=== PATIENT | female | born 1975 | race Caucasian/White ===

== ENCOUNTER → 2018-05-10 | Day surgery (SDC) | payer OTHER ==
[~2018-05-10] MED LIST: FENTANYL CITRATE/PF 100MCG/2 ML INJ ONE; HYOSCYAMINE SULFATE 0.5 MG/ML INJ ONE; LIDOCAINE HCL 2% LOCAL INJ 5 ML SDV VIAL INJ ONE; MIDAZOLAM HCL 2 MG/2 ML VIAL ONE; PROPOFOL IV EMULSION 10 MG/ML 50 ML VIAL ONE; REQUIP1 MG PO; TOPAMAX25 MG PO
--- OUTSIDE RECORDS SUMMARY | 2018-05-10 13:02 | XMS REPORT ---
Author Author Flower Clements Organization eClinicalWorks Address Unknown Phone Unavailable Care Team Providers Care Director Strategy Name Role Phone Flower Clements Unavailable Allergies No Known Allergies Problems Problem Type Condition Code Onset Dates Condition Status Problem Chest pain R07.9 Active Problem SOB (shortness of breath) R06.02 Active Problem Chronic migraine G43.709 Active Assessment Acute pain of right shoulder M25.511 Active Medications Medication Code System Code Instructions Start Date End Date Status Dosage Sumatriptan Succinate [facility] [address]-66 100 MG orally at onset of headache repeat in 4hrs if needed max 2 a day Active 1 tablet Results No Known Results Summary Purpose eClinicalWorks Submission
--- OUTSIDE RECORDS SUMMARY | 2018-05-10 13:02 | XMS REPORT | Continuity of Care Document ---
Author Author [facility] Interface Address Unknown Phone Unavailable Problems Problem Status Onset Date Classification Date Reported Comments Source Cellulitis of skin 09/07/2016 Diagnosis 09/07/2016 [facility] Chest pain Active Problem 12/20/2017 [facility] Chronic migraine Active Problem 04/12/2018 [facility] Acute seasonal allergic rhinitis due to other allergen Active Problem 04/12/2018 [facility] SOB Active Problem 11/01/2016 [facility] Acute pain of right shoulder Active Diagnosis 05/25/2016 [facility] Yeast infection Active Diagnosis 09/15/2016 [facility] Encounter for initial prescription of injectable contraceptive Active Diagnosis 09/15/2016 [facility] Abscess Active Diagnosis 05/14/2017 [facility] Contraceptive management Active Diagnosis 10/04/2016 [facility] Encounter for surveillance of injectable contraceptive Active Diagnosis 01/05/2017 [facility] Encntr for general adult medical exam w/o abnormal findings Active Diagnosis 01/05/2017 [facility] Screening for breast cancer Active Diagnosis 01/05/2017 [facility] Encounter to discuss test results Active Diagnosis 07/10/2016 [facility] Osteoarthritis of right shoulder, unspecified osteoarthritis type Active Diagnosis 07/10/2016 [facility] UTI symptoms Active Diagnosis 12/20/2017 [facility] Symptoms of urinary tract infection Active Diagnosis 11/28/2017 [facility] Tendonitis of shoulder, right Active Diagnosis 09/18/2017 [facility] Chest discomfort Active Diagnosis 09/18/2017 [facility] Overweight Active Diagnosis 06/03/2015 [facility] Vaginitis Active Diagnosis 06/03/2015 [facility] Urinary tract infection Active Diagnosis 06/03/2015 [facility] BMI 25.0-25.9,adult Active Diagnosis 06/03/2015 [facility] Sore throat Active Diagnosis 06/03/2015 [facility] 719.46/719.4 Active [facility] Medications Medication Details Route Status Patient Instructions Ordering Provider Order Date Source Keflex 1 capsule Orally Active 500 mg Orally every 12 hrs Raymond 12/16/2017 [facility] Augmentin 1 tablet by mouth Active 875-125 MG by mouth twice a day (bid) Raymond 11/29/2017 [facility] Tramadol HCl 1 tablet as needed Orally Active 50 mg Orally Q8 PRN Raymond 05/09/2017 [facility] Ibuprofen 1 tablet with food or milk Orally Active 800 MG Orally Q8 PRN Raymond 05/09/2017 [facility] Depo-Provera 1 ml Intramuscular Active 150 MG/ML Intramuscular every 3 mo Charlie 09/13/2016 [facility] Diflucan 1 tablet Orally Active 150 MG Orally one today and again in 72 hours Charlie 09/13/2016 [facility] Depo-Provera 1 ml Intramuscular Active 150 MG/ML Intramuscular every 3 mo Charlie 09/13/2016 [facility] Naproxen 1 tablet Orally Active 375 MG Orally Twice a day prn Nikolas Sanderson 03/26/2016 [facility] Diflucan 1 tablet Orally Active 150 MG Orally take one, and then another in 72 hours [place] 05/31/2015 [facility] Cipro 1 tablet Orally Active 500 mg Orally Twice a day [place] 05/31/2015 [facility] Tamiflu 1 capsule Orally Active 75 mg Orally once a day Mark 02/03/2014 [facility] Sumatriptan Succinate 1 tablet orally Active 100 mg orally at onset of headache repeat in 4hrs if needed max [address] [facility] Sumatriptan Succinate 1 tablet orally Active 100 MG orally at onset of headache repeat in 4hrs if needed max 2 a day [address] Sand[address] [facility] Sumatriptan Succinate 1 tablet orally Active 100 mg orally at onset of headache repeat in 4hrs if needed max [address] [facility] Indomethacin CR TAKE ONE (1) CAPSULE(S) BY MOUTH ONCE A DAY WITH FOOD OR MILK. Oral Active 75 MG Oral Raymond [facility] Ropinirole HCl TAKE ONE (1) TABLET(S) BY MOUTH DAILY AT NIGHT. Oral Active 0.25 MG Oral Raymond [facility] Topamax 1 capsule Orally Active 25 MG Orally Once a day Raymond [facility] Cephalexin 500 MG Oral Capsule cephalexin 500 mg capsule Take 1 capsule every 6 hours by oral route as directed for 7 days. Active [facility] Mupirocin 0.02 MG/MG Topical Ointment mupirocin 2 % topical ointment APPLY A SMALL AMOUNT TO THE AFFECTED AREA BY TOPICAL ROUTE 3 TIMES PER DAY X 10 days Active [facility] Naproxen 375 MG Oral Tablet naproxen 375 mg tablet TAKE ONE (1) TABLET(S) BY MOUTH TWICE A DAY NEEDED. Active [facility] Ondansetron 4 MG Disintegrating Oral Tablet ondansetron 4 mg disintegrating tablet Active [facility] Phentermine Hydrochloride 37.5 MG Oral Tablet phentermine 37.5 mg tablet TAKE ONE-HALF (1/2) TABLET(S) BY MOUTH EVERY PROJECT DEVELOPER FOR ONE WEEK, THEN ONE (1) TABLET EVERY PROJECT DEVELOPER. Active [facility] Sumatriptan 100 MG Oral Tablet sumatriptan 100 mg tablet Active [facility] Allergies, Adverse Reactions, Alerts Substance Category Reaction Severity Reaction type Status Date Reported Comments Source N.K.D.A. Adverse Reaction Info Not Available Adverse Reaction Active 11/27/2017 [facility] Immunizations Immunization Date Given Site Status Last Updated Comments Source Results Order Name Results Value Reference Range Date Interpretation Comments Source Vital Signs Vital Sign Value Date Comments Source Weight 158 11/27/2017 [facility] Height 61 11/27/2017 [facility] Heart Rate 80 11/27/2017 [facility] Diastolic (mm Hg) 80 11/27/2017 [facility] Systolic (mm Hg) 110 11/27/2017 [facility] Weight 157 09/09/2017 [facility] Height 61 09/09/2017 [facility] Temperature Oral (F) 98.2 F 09/09/2017 [facility] Heart Rate 74 09/09/2017 [facility] Diastolic (mm Hg) 84 09/09/2017 [facility] Systolic (mm Hg) 130 09/09/2017 [facility] Weight 158 05/09/2017 [facility] Height 61 05/09/2017 [facility] Heart Rate 80 05/09/2017 [facility] Diastolic (mm Hg) 88 05/09/2017 [facility] Systolic (mm Hg) 128 05/09/2017 [facility] Weight 156 01/02/2017 [facility] Height 61 01/02/2017 [facility] Heart Rate 73 01/02/2017 [facility] Diastolic (mm Hg) 86 01/02/2017 [facility] Systolic (mm Hg) 130 01/02/2017 [facility] Weight 151 09/13/2016 [facility] Height 61 09/13/2016 [facility] Heart Rate 96 09/13/2016 [facility] Diastolic (mm Hg) 84 09/13/2016 [facility] Systolic (mm Hg) 122 09/13/2016 [facility] Diastolic (mm Hg) 84 09/07/2016 [facility] Height 61 09/07/2016 [facility] Systolic (mm Hg) 136 09/07/2016 [facility] Weight 148 09/07/2016 [facility] Weight 156 07/05/2016 [facility] Height 61 07/05/2016 [facility] Heart Rate 76 07/05/2016 [facility] Diastolic (mm Hg) 80 07/05/2016 [facility] Systolic (mm Hg) 112 07/05/2016 [facility] Weight 148 03/26/2016 [facility] Height 61 03/26/2016 [facility] Heart Rate 79 03/26/2016 [facility] Diastolic (mm Hg) 80 03/26/2016 [facility] Systolic (mm Hg) 112 03/26/2016 [facility] Weight 135 05/31/2015 [facility] Height 61 05/31/2015 [facility] Temperature Oral (F) 98.4 F 05/31/2015 [facility] Heart Rate 66 05/31/2015 [facility] Diastolic (mm Hg) 78 05/31/2015 [facility] Systolic (mm Hg) 122 05/31/2015 [facility] Encounters Location Location Details Encounter Type Encounter Number Reason For Visit Attending Provider ADM Date DC Date Status Source [facility] [id number] 719.46/719.4 BETSY FLORESENBERG 12/25/2010 Active [facility] urine test/sore throat [id number] 05/31/2015 05/31/2015 [facility] urine test/sore throat [id number] 05/31/2015 05/31/2015 [facility] urine test/sore throat [id number] 05/31/2015 05/31/2015 [facility] urine test/sore throat [id number] 05/31/2015 05/31/2015 [facility] Unknown [id number] 12/22/2015 12/22/2015 [facility] Unknown [id number] 12/22/2015 12/22/2015 [facility] Unknown [id number] 12/22/2015 12/22/2015 [facility] shoulder pain [id number] 03/26/2016 03/26/2016 [facility] shoulder pain [id number] 03/26/2016 03/26/2016 [facility] Unknown [id number] 05/15/2016 05/15/2016 [facility] [place] - [facility] - [id number] Glaser, LICENSED EMBALMER SUPERVISOR-C: [address] [place] [address], Ph. [id number] Rabia Glaser 09/07/2016 [facility] Procedures Procedure Code Date Perfomer Comments Source Breast Reconstruction [facility] Hernia Repair W/mesh [facility]
--- OUTSIDE RECORDS SUMMARY | 2018-05-10 13:02 | XMS REPORT ---
Author Author Flower Clements [facility] eClinicalWorks Address Unknown Phone Unavailable Care Team Providers Care Assistant Professor Of Business Name Role Phone Flower Clements CP Unavailable Allergies, Adverse Reactions, Alerts Substance Reaction Event Type N.K.D.A. Info Not Available Non Drug Allergy Problems Problem Type Condition Code Onset Dates Condition Status Problem Chest pain R07.9 Active Problem SOB (shortness of breath) R06.02 Active Problem Chronic migraine G43.709 Active Assessment Encounter to discuss test results Z71.89 Active Assessment Osteoarthritis of right shoulder, unspecified osteoarthritis type M19.011 Active Medications Medication Code System Code Instructions Start Date End Date Status Dosage Sumatriptan Succinate [facility] [address]-76 100 MG orally at onset of headache repeat in 4hrs if needed max 2 a day Active 1 tablet Vital Signs Date/Time: July 05, 2016 BMI 29.47 Index Weight 156 lbs Height 61 in Cardiac Monitoring Heart Rate 76 /min Blood Pressure Diastolic 80 mm Hg Blood Pressure Systolic 112 mm Hg Results No Known Results Summary Purpose eClinicalWorks Submission
--- OUTSIDE RECORDS SUMMARY | 2018-05-10 13:03 | XMS REPORT ---
Author Author Kristina Andrade [facility] eClinicalWorks Address Unknown Phone Unavailable Care Team Providers Care Mold Yard Supervisor Name Role Phone Kristina Andrade Unavailable Allergies No Known Allergies Problems Problem Type Condition Code Onset Dates Condition Status Problem Chest pain R07.9 Active Problem Chronic migraine G43.709 Active Problem Acute seasonal allergic rhinitis due to other allergen J30.2 Active Assessment UTI symptoms R39.9 Active Medications Medication Code System Code Instructions Start Date End Date Status Dosage Indomethacin CR [facility] 02713139377 75 MG Oral Active TAKE ONE (1) CAPSULE(S) BY MOUTH ONCE A DAY WITH FOOD OR MILK. Ropinirole HCl [facility] 94742994273 0.25 MG Oral Active TAKE ONE (1) TABLET(S) BY MOUTH DAILY AT NIGHT. Keflex [facility] 76147322908 500 mg Orally every 12 hrs Dec 16, 2017 Dec 23, 2017 Active 1 capsule Topamax [facility] [address]-33 25 MG Orally Once a day Active 1 capsule Results No Known Results Summary Purpose eClinicalWorks Submission
--- OUTSIDE RECORDS SUMMARY | 2018-05-10 13:03 | XMS REPORT ---
Author Author Kristina Andrade [facility] eClinicalWorks Address Unknown Phone Unavailable Care Team Providers Care Chisel Worker Name Role Phone Kristina Andrade CP Unavailable Allergies No Known Allergies Problems Problem Type Condition Code Onset Dates Condition Status Problem Chest pain R07.9 Active Problem Chronic migraine G43.709 Active Problem Acute seasonal allergic rhinitis due to other allergen J30.2 Active Medications Medication Code System Code Instructions Start Date End Date Status Dosage Augmentin [facility] 72306178941 875-125 MG by mouth twice a day (bid) Nov 29, 2017 Dec 09, 2017 Active 1 tablet Results No Known Results Summary Purpose eClinicalWorks Submission
--- OUTSIDE RECORDS SUMMARY | 2018-05-10 13:03 | XMS REPORT ---
Author Author Yane Guerra [facility] eClinicalWorks Address Unknown Phone Unavailable Care Team Providers Care Gluer And Wedger Name Role Phone Yane Guerra Unavailable Allergies, Adverse Reactions, Alerts Substance Reaction Event Type N.K.D.A. Info Not Available Non Drug Allergy Problems Problem Type Condition Code Onset Dates Condition Status Problem Chest pain R07.9 Active Problem SOB (shortness of breath) R06.02 Active Problem Chronic migraine G43.709 Active Assessment Contraceptive management Z30.9 Active Medications Medication Code System Code Instructions Start Date End Date Status Dosage Depo-Provera [facility] [address]-15 150 MG/ML Intramuscular every 3 mo September 13, 2016 Mar 12, 2017 Active 1 ml Sumatriptan Succinate [facility] [address]-38 100 MG orally at onset of headache repeat in 4hrs if needed max 2 a day Active 1 tablet Results Name Result Date Reference Range Unit Abnormality Flag DEPO PROVERA ADMIN THER/PROPH/DIAG INJ, SC/IM Summary Purpose eClinicalWorks Submission
--- OUTSIDE RECORDS SUMMARY | 2018-05-10 13:03 | XMS REPORT ---
Author Author Flower Clements Organization eClinicalWorks Address Unknown Phone Unavailable Care Team Providers Care Pipe Manufacture Supervisor Name Role Phone Flower Clements Unavailable Encounters Encounter Location Date urine test/sore throat [facility] May 31, 2015 Unknown [facility] Dec 22, 2015 Problems Problem Type Condition ICD-9 Code Onset Dates Condition Status Problem Chest pain R07.9 Active Problem SOB (shortness of breath) R06.02 Active Problem Chronic migraine G43.709 Active Assessment Chronic migraine G43.709 Active Medications Medication Code System Code Instructions Start Date End Date Status Dosage Sumatriptan Succinate [facility] [address]-56 100 MG orally at onset of headache repeat in 4hrs if needed max 2 a day Active 1 tablet Social History Social History Element Qualifiers Date 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 Are you a: never smoker May 31, 2015 Ethnicity . Status , Is citizen of [place] your primary language? Yes May 31, 2015 Use of recreational / street drugs? . Answer: No May 31, 2015 Flu Vaccine: . No, Advised May 31, 2015 Sexual Hx: . Had sex in the last 12 months (vaginal, oral, or anal)?: Yes, with: Men only, Use protection?: Yes, How often?: All of the time, Prevention Strategies discussed:: Condoms, Have you ever had an STD?: Yes, Chlamydia?: Yes, LMP:: 05/14/2015 May 31, 2015 Do you have pets? . Status: No May 31, 2015 children . 1 son, 1 daughter May 31, 2015 Marital Status: . May 31, 2015 Caffeine intake? . Status: Yes, What type: Coffee May 31, 2015 Do you exercise? . Answer: Yes, Type: Carlotta May 31, 2015 Depression Screening: . negative May 31, 2015 Do you drink alcohol? . Status: Yes, Type: Beer, Liquor, How often? Socially, How much? Socially May 31, 2015 Summary Purpose eClinicalWorks Submission
--- OUTSIDE RECORDS SUMMARY | 2018-05-10 13:03 | XMS REPORT ---
Author Author Kristina Andrade [facility] eClinicalWorks Address Unknown Phone Unavailable Care Team Providers Care Consulting Application Engineer Name Role Phone Kristina Andrade CP Unavailable Allergies No Known Allergies Problems Problem Type Condition Code Onset Dates Condition Status Problem Chest pain R07.9 Active Problem Chronic migraine G43.709 Active Problem Acute seasonal allergic rhinitis due to other allergen J30.2 Active Assessment Chronic migraine G43.709 Active Medications Medication Code System Code Instructions Start Date End Date Status Dosage Sumatriptan Succinate [facility] 07023300269 100 mg orally at onset of headache repeat in 4hrs if needed max 2 a day Active 1 tablet Results No Known Results Summary Purpose eClinicalWorks Submission
--- OUTSIDE RECORDS SUMMARY | 2018-05-10 13:03 | XMS REPORT ---
Author Author Kristina Andrade [facility] eClinicalWorks Address Unknown Phone Unavailable Care Team Providers Care Movie Critic Name Role Phone Kristina Andrade CP Unavailable Allergies, Adverse Reactions, Alerts Substance Reaction Event Type N.K.D.A. Info Not Available Non Drug Allergy Problems Problem Type Condition Code Onset Dates Condition Status Problem Chest pain R07.9 Active Problem Chronic migraine G43.709 Active Problem Acute seasonal allergic rhinitis due to other allergen J30.2 Active Assessment Abscess L02.91 Active Medications Medication Code System Code Instructions Start Date End Date Status Dosage Tramadol HCl [facility] 28728088279 50 mg Orally Q8 PRN May 09, 2017 May 16, 2017 Active 1 tablet as needed Ibuprofen [facility] 05351637581 800 MG Orally Q8 PRN May 09, 2017 May 16, 2017 Active 1 tablet with food or milk Sumatriptan Succinate [facility] 01902947271 100 mg orally at onset of headache repeat in 4hrs if needed max 2 a day Active 1 tablet Vital Signs Date/Time: May 09, 2017 BMI 29.85 Index Weight 158 lbs Height 61 in Cardiac Monitoring Heart Rate 80 /min Blood Pressure Diastolic 88 mm Hg Blood Pressure Systolic 128 mm Hg Results No Known Results Summary Purpose eClinicalWorks Submission
--- OUTSIDE RECORDS SUMMARY | 2018-05-10 13:03 | XMS REPORT ---
Author Author Flower Clements Organization eClinicalWorks Address Unknown Phone Unavailable Care Team Providers Care Surfacing Technician Name Role Phone Flower Clements Unavailable Allergies No Known Allergies Problems Problem Type Condition Code Onset Dates Condition Status Problem Chest pain R07.9 Active Problem Chronic migraine G43.709 Active Problem Acute seasonal allergic rhinitis due to other allergen J30.2 Active Medications Medication Code System Code Instructions Start Date End Date Status Dosage Keflex [facility] 52299224473 500 mg Orally every 12 hrs Dec 16, 2017 Dec 23, 2017 Active 1 capsule Results No Known Results Summary Purpose eClinicalWorks Submission
--- OUTSIDE RECORDS SUMMARY | 2018-05-10 13:03 | XMS REPORT ---
Author Author Flower Clements Organization eClinicalWorks Address Unknown Phone Unavailable Care Team Providers Care Shingle Catcher Name Role Phone Flower Clements CP Unavailable Allergies No Known Allergies Problems Problem Type Condition Code Onset Dates Condition Status Problem Chest pain R07.9 Active Problem Chronic migraine G43.709 Active Problem Acute seasonal allergic rhinitis due to other allergen J30.2 Active Medications No Known Medications Results No Known Results Summary Purpose eClinicalWorks Submission
--- OUTSIDE RECORDS SUMMARY | 2018-05-10 13:03 | XMS REPORT ---
Author Author Flower Clements Organization eClinicalWorks Address Unknown Phone Unavailable Care Team Providers Care Engine Boss Name Role Phone Flower Clements CP Unavailable Allergies No Known Allergies Problems Problem Type Condition Code Onset Dates Condition Status Problem Chronic migraine G43.709 Active Problem Acute seasonal allergic rhinitis due to other allergen J30.2 Active Medications No Known Medications Results No Known Results Summary Purpose eClinicalWorks Submission
--- OUTSIDE RECORDS SUMMARY | 2018-05-10 13:03 | XMS REPORT ---
Author Author Flower Clements Organization eClinicalWorks Address Unknown Phone Unavailable Care Team Providers Care Compressor Battery Pellets Name Role Phone Flower Clements Unavailable Allergies No Known Allergies Problems Problem Type Condition Code Onset Dates Condition Status Problem Chest pain R07.9 Active Problem SOB (shortness of breath) R06.02 Active Problem Chronic migraine G43.709 Active Medications Medication Code System Code Instructions Start Date End Date Status Dosage Sumatriptan Succinate [facility] [address]-61 100 MG orally at onset of headache repeat in 4hrs if needed max 2 a day Active 1 tablet Results No Known Results Summary Purpose eClinicalWorks Submission
--- OUTSIDE RECORDS SUMMARY | 2018-05-10 13:03 | XMS REPORT ---
Author Author [facility] Address Unknown Phone Unavailable Care Team Providers Care Diabetes Educator Name Role Phone Unavailable Unavailable Problems This patient has no known problems. Allergies, Adverse Reactions, Alerts This patient has no known allergies or adverse reactions. Medications This patient has no known medications. Results Test Description Test Time Test Comments Text Results Atomic Results Result Comments SCR MAMM BILATERAL HIPOLITO CAD DIGITAL 2018-04-21 10:44:50 - SCR MAMM BILATERAL HIPOLITO CAD DIGITALBILATERAL FIRST EVER DIGITAL SCREENING MAMMOGRAM 3D/2D WITH CAD: 04/18/2018CLINICAL: Asymptomatic. Digital breast tomosynthesis was performed in addition to routine CC and MLO views. Current mammographic images were evaluated by either a [employer] M-Vu or a [employer] ImageChecker CAD (computer aided detection system). No prior exams were available for comparison. The tissue of both breasts is heterogeneously dense. This may lower the sensitivity of mammography. No suspicious mass, architectural distortion, malignant type calcification, or lymph node abnormality detected. IMPRESSION: NEGATIVEThere is no mammographic evidence of malignancy. Resume annual screening mammography in one year. London Heaton M.D. ss/doyle:04/21/2018 10:44:50 Steel Post Installer Supervisor: Kim FRANCISCO, [facility]-FWletter sent: BIRADS 1-2 Normal Mammogram BI-RADS: 1 Negative
--- OUTSIDE RECORDS SUMMARY | 2018-05-10 13:03 | XMS REPORT ---
Author Author Flower Clements Organization eClinicalWorks Address Unknown Phone Unavailable Care Team Providers Care Liquor Establishment Manager Name Role Phone Connor Flower Sanderson Unavailable Encounters Encounter Location Date Unknown [facility] May 15, 2016 urine test/sore throat [facility] May 31, 2015 Unknown [facility] Dec 22, 2015 shoulder pain [facility] Mar 26, 2016 Problems Problem Type Condition ICD-9 Code Onset Dates Condition Status Problem Chest pain R07.9 Active Problem SOB (shortness of breath) R06.02 Active Problem Chronic migraine G43.709 Active Social History Social History Element Qualifiers Date 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 Are you a: never smoker Mar 26, 2016 Ethnicity . Status , Is slovenian your primary language? Yes Mar 26, 2016 Use of recreational / street drugs? . Answer: No Mar 26, 2016 Flu Vaccine: . No, Advised Mar 26, 2016 Sexual Hx: . Had sex in the last 12 months (vaginal, oral, or anal)?: Yes, with: Men only, Use protection?: Yes, How often?: All of the time, Prevention Strategies discussed:: Condoms, Have you ever had an STD?: Yes, Chlamydia?: Yes, LMP:: 03/05/2016 Mar 26, 2016 Do you have pets? . Status: No Mar 26, 2016 children . 1 son, 1 daughter Mar 26, 2016 Marital Status: . Mar 26, 2016 Caffeine intake? . Status: Yes, What type: Coffee Mar 26, 2016 Do you exercise? . Answer: Yes, Type: Carlotta Mar 26, 2016 Depression Screening: . negative Mar 26, 2016 Smoke Exposure: . Second Hand Smoke Exposure: No Mar 26, 2016 Do you drink alcohol? . Status: Yes, Type: Beer, Liquor, How often? Socially, How much? Socially Mar 26, 2016 Summary Purpose eClinicalWorks Submission
--- OUTSIDE RECORDS SUMMARY | 2018-05-10 13:03 | XMS REPORT | Encounter Summary ---
Author Organization Unknown Address [address] [place] [id number] Phone [phone] Reason for Visit Medical Complaint Instructions 1. Cellulitis of skin cellulitis: care instructions cephalexin 500 mg capsule mupirocin 2 % topical ointment call back Discussion Note Pt is in NAD; Verbalizes understanding of all instructions with no questions at this time. Plan of Care Patient Instructions Keep area clean and dry. Clean with soap and water twice a day, pat dry and apply antibiotic ointment as directed. Take antibiotics as directed. Take benadryl or zyrtec over the counter for itching. Do not drive or operate machinery while on this medication. Take medications as prescribed. Return to clinic or follow up with your PCP within 2-3 days if symptoms worsen as discussed. In case of emergency: worsening swelling or redness, tingling/numbness/loss of sensation and purple discoloration call 911 or go to nearest ER Reminders Provider Appointments None recorded. Lab None recorded. Referral None recorded. Procedures None recorded. Surgeries None recorded. Imaging None recorded. Medications Name Start Date cephalexin 500 mg capsule Take 1 capsule every 6 hours by oral route as directed for 7 days. mupirocin 2 % topical ointment APPLY A SMALL AMOUNT TO THE AFFECTED AREA BY TOPICAL ROUTE 3 TIMES PER DAY X 10 days naproxen 375 mg tablet TAKE ONE (1) TABLET(S) BY MOUTH TWICE A DAY NEEDED. ondansetron 4 mg disintegrating tablet phentermine 37.5 mg tablet TAKE ONE-HALF (1/2) TABLET(S) BY MOUTH EVERY PINION STAKER FOR ONE WEEK, THEN ONE (1) TABLET EVERY PINION STAKER. sumatriptan 100 mg tablet Medications Administered None recorded. Vitals Height Weight BMI Blood Pressure 5 ft 1 in 148 lbs 28 kg/m2 136/84 mm[Hg] Lab Results None recorded. Allergies Code Code System Name Reaction Severity Onset NKDA Problems None recorded. Procedures Date Name Performed by Breast Reconstruction Information not available Hernia Repair W/mesh Information not available Vaccine List None recorded. Social History Smoking Status Never Smoker Past Encounters 09/07/2016 Cellulitis of Skin Rabia Glaser, REGISTERED VETERINARY TECHNICIAN-C: [address] [facility], [place] [address], Ph. History of Present Illness Abmu-Zpulpcs-Vemnp-Skin Lesion-Bite 1 Reported By: Patient HPI: Location: arms. Quality: itchy, painful, tender, red, single, localized, swollen. Severity: worsening, moderate. Duration: ; 3 days. Onset/Timing: abrupt onset. Context: no new detergents or skin products, no one else with similar rash, scratching, bite/sting exposure. Aggravating factors: clothing. Alleviating factors: nothing gives relief. Associated Symptoms: no fever/chills, no muscle aches, no headache, no cold symptoms, no nausea, no vomiting, no diarrhea, no urinary symptoms Review of Systems:ROS as noted in the HPI Review of Systems Basic Reported By: Patient Physical Exam Adult Basic, 14-21 Yr Male, Adult Female Complete, Adult Male Complete, 4-6 Yr Female Reported By: Patient Constitutional: General Appearance: healthy-appearing, well-nourished, well-developed. Level of Distress: NAD. Ambulation: ambulating normally Psychiatric: Mental Status: active and alert, normal affect, normal mood. Orientation: to time, to place, to person Eyes: Lids and Conjunctivae: non-injected, no discharge Neck: Neck: supple. Lymph Nodes: no cervical LAD Lungs: Respiratory effort: no dyspnea, no tachypnea, no use of accessory muscles, no intercostal retractions. Auscultation: breath sounds normal, clear to auscultation, no wheezing, no rales/crackles, no rhonchi, no retractions, good air movement Cardiovascular: Heart Auscultation: RRR, no murmurs, no gallops, no rub. Rate and rhythm: regular Neurologic: Gait and Station: normal gait, normal station Skin: Inspection and palpation: no rash, no ulcer, no abnormal nevi, no induration, no nodules, good turgor, no jaundice, lesion
--- OUTSIDE RECORDS SUMMARY | 2018-05-10 13:03 | XMS REPORT ---
Author Author Yane Guerra [facility] eClinicalWorks Address Unknown Phone Unavailable Care Team Providers Care Ambulatory Care Name Role Phone Yane Guerra CP Unavailable Allergies, Adverse Reactions, Alerts Substance Reaction Event Type N.K.D.A. Info Not Available Non Drug Allergy Problems Problem Type Condition Code Onset Dates Condition Status Assessment Acute seasonal allergic rhinitis due to other allergen J30.2 Active Problem Chest pain R07.9 Active Problem Chronic migraine G43.709 Active Problem Acute seasonal allergic rhinitis due to other allergen J30.2 Active Assessment Chronic migraine G43.709 Active Assessment Encounter for surveillance of injectable contraceptive Z30.42 Active Assessment Encntr for general adult medical exam w/o abnormal findings Z00.00 Active Assessment Screening for breast cancer Z12.39 Active Medications Medication Code System Code Instructions Start Date End Date Status Dosage Sumatriptan Succinate [facility] 53187084254 100 mg orally at onset of headache repeat in 4hrs if needed max 2 a day Active 1 tablet Depo-Provera ND 77262833447 150 MG/ML Intramuscular every 3 mo September 13, 2016 Mar 12, 2017 Active 1 ml Vital Signs Date/Time: Jan 02, 2017 BMI 29.47 Index Weight 156 lbs Height 61 in Cardiac Monitoring Heart Rate 73 /min Blood Pressure Diastolic 86 mm Hg Blood Pressure Systolic 130 mm Hg Results Name Result Date Reference Range Unit Abnormality Flag DEPO PROVERA Summary Purpose eClinicalWorks Submission
--- OUTSIDE RECORDS SUMMARY | 2018-05-10 13:03 | XMS REPORT ---
Author Author Nandini Flores [facility] eClinicalWorks Address Unknown Phone Unavailable Care Team Providers Care Qualifications Examiner Name Role Phone Nandini Flores Unavailable Allergies, Adverse Reactions, Alerts Substance Reaction Event Type N.K.D.A. Info Not Available Non Drug Allergy Encounters Encounter Location Date urine test/sore throat [facility] May 31, 2015 Problems Problem Type Condition ICD-9 Code Onset Dates Condition Status Assessment Overweight (BMI 25.0-29.9) E66.3 Active Assessment Vaginitis N76.0 Active Problem Chest pain R07.9 Active Problem SOB (shortness of breath) R06.02 Active Problem Chronic migraine G43.709 Active Assessment Urinary tract infection N39.0 Active Assessment BMI 25.0-25.9,adult Z68.25 Active Assessment Sore throat J02.9 Active Assessment Chronic migraine G43.709 Active Medications Medication Code System Code Instructions Start Date End Date Status Dosage Sumatriptan Succinate [facility] [address]-40 100 MG Active TAKE 1 TAB ONSET OF HEADACHE AND REPEAT IN 4 HOURS NEEDED Tamiflu [facility] [address]-92 75 mg Orally once a day Feb 03, 2014 Active 1 capsule Diflucan [facility] [address]-72 150 MG Orally take one, and then another in 72 hours May 31, 2015 June 03, 2015 Active 1 tablet Cipro [facility] [address]-02 500 mg Orally Twice a day May 31, 2015 June 03, 2015 Active 1 tablet Social History Social History Element Qualifiers Date Reported Occupation: employed. Manager Personnel Selection @[employer] May 31, 2015 Tobacco Use: . Are you a: never smoker May 31, 2015 Ethnicity . Status , Is wallisian your primary language? Yes May 31, 2015 [...] Socially, How much? Socially May 31, 2015 Family history Qualifier Description Comment Date Reported Maternal Grandmother Comment not available May 31, 2015 Paternal Grandmother alive Comment not available May 31, 2015 Siblings alive Comment not available May 31, 2015 Maternal Grandfather Comment not available May 31, 2015 Children Comment not available May 31, 2015 Father alive Comment not available May 31, 2015 Paternal Grandfather alive Comment not available May 31, 2015 Mother alive prediabetes May 31, 2015 Other: Comment not available May 31, 2015 Vital Signs Date/Time: May 31, 2015 Weight 135 lbs Height 61 in Temperature 98.4 F Cardiac Monitoring Heart Rate 66 /min Blood Pressure Diastolic 78 mm Hg Blood Pressure Systolic 122 mm Hg Results URINE AUTO W/O SCOPE Summary Purpose eClinicalWorks Submission
--- OUTSIDE RECORDS SUMMARY | 2018-05-10 13:03 | XMS REPORT | Summary of Care ---
Author Author Leonora Gastelum [facility] Unknown Address Unknown Phone Unavailable Care Team Providers Care American History Professor Name Role Phone THADDEUS MOMIN M.D. Unavailable Unavailable Functional Status Name Dates Details Functional status health issues are not documented Status: Name Dates Details Cognitive status health issues are not documented Status: Problems Name Dates Details Acute pain of right shoulder (719.41, M25.511) Status: Active Pain of right hand (729.5, M79.641) Status: Active Pain of left hand (729.5, M79.642) Status: Active Medications Name Dates Details Medications not documented Allergies and Adverse Reactions Name Dates Details Allergy history not documented Status: Procedures Procedure Dates Details Procedures not documented Immunization Name Dates Details Immunizations not documented Social History Name Dates Details Unknown if ever smoked Vital Signs Date Test Result Details No Known Vitals to report Results Date Description Value Details Results not documented Plan of Care Name Dates Details Planned Observations Planned Goals not documented Instructions Name Dates Details Instructions not documented Encounters Appointment; THADDEUS MOMIN M.D. Encounter Diagnosis: Problem not documented On: 18-Jun-2017 8:00
--- OUTSIDE RECORDS SUMMARY | 2018-05-10 13:03 | XMS REPORT ---
Author Author Kristina Andrade [facility] eClinicalWorks Address Unknown Phone Unavailable Care Team Providers Care Clutch Mechanic Name Role Phone Kristina Andrade CP Unavailable Allergies, Adverse Reactions, Alerts Substance Reaction Event Type N.K.D.A. Info Not Available Non Drug Allergy Problems Problem Type Condition Code Onset Dates Condition Status Problem Chest pain R07.9 Active Problem Chronic migraine G43.709 Active Problem Acute seasonal allergic rhinitis due to other allergen J30.2 Active Assessment Symptoms of urinary tract infection R39.9 Active Medications Medication Code System Code Instructions Start Date End Date Status Dosage Sumatriptan Succinate [facility] 27637425156 100 mg orally at onset of headache repeat in 4hrs if needed max 2 a day Active 1 tablet Indomethacin CR [facility] 83049669735 75 MG Oral Active TAKE ONE (1) CAPSULE(S) BY MOUTH ONCE A DAY WITH FOOD OR MILK. Topamax [facility] [address]-06 25 MG Orally Once a day Active 1 capsule Ropinirole HCl [facility] 45093011464 0.25 MG Oral Active TAKE ONE (1) TABLET(S) BY MOUTH DAILY AT NIGHT. Vital Signs Date/Time: Nov 27, 2017 BMI 29.85 Index Weight 158 lbs Height 61 in Cardiac Monitoring Heart Rate 80 /min Blood Pressure Diastolic 80 mm Hg Blood Pressure Systolic 110 mm Hg Results No Known Results Summary Purpose eClinicalWorks Submission
--- OUTSIDE RECORDS SUMMARY | 2018-05-10 13:03 | XMS REPORT ---
Author Author Flower Clements [facility] eClinicalWorks Address Unknown Phone Unavailable Care Team Providers Care [employer]oples[employer] Financials Name Role Phone Flower Clements Unavailable Allergies, Adverse Reactions, Alerts Substance Reaction Event Type N.K.D.A. Info Not Available Non Drug Allergy Encounters Encounter Location Date urine test/sore throat [facility] May 31, 2015 Unknown [facility] Dec 22, 2015 shoulder pain [facility] Mar 26, 2016 Problems Problem Type Condition ICD-9 Code Onset Dates Condition Status Problem Chest pain R07.9 Active Problem SOB (shortness of breath) R06.02 Active Problem Chronic migraine G43.709 Active Assessment Acute pain of right shoulder M25.511 Active Medications Medication Code System Code Instructions Start Date End Date Status Dosage Sumatriptan Succinate [facility] [address]-19 100 MG orally at onset of headache repeat in 4hrs if needed max 2 a day Active 1 tablet Naproxen [facility] [address]-53 375 MG Orally Twice a day prn Mar 26, 2016 Apr 25, 2016 Active 1 tablet Social History Social History Element Qualifiers Date Reported Occupation: employed. Traffic And Transport Planner @[employer] Mar 26, 2016 Tobacco Use: . Are you a: never smoker Mar 26, 2016 Ethnicity . Status , Is hungarian your primary language? Yes Mar 26, 2016 [...] Socially, How much? Socially Mar 26, 2016 Family history Qualifier Description Comment Date Reported Maternal Grandmother Comment not available Mar 26, 2016 Paternal Grandmother alive Comment not available Mar 26, 2016 Siblings alive Comment not available Mar 26, 2016 Maternal Grandfather Comment not available Mar 26, 2016 Children Comment not available Mar 26, 2016 Father alive Comment not available Mar 26, 2016 Paternal Grandfather alive Comment not available Mar 26, 2016 Mother alive prediabetes Mar 26, 2016 Other: Comment not available Mar 26, 2016 Vital Signs Date/Time: Mar 26, 2016 Weight 148 lbs Height 61 in Cardiac Monitoring Heart Rate 79 /min Blood Pressure Diastolic 80 mm Hg Blood Pressure Systolic 112 mm Hg Summary Purpose eClinicalWorks Submission
--- OUTSIDE RECORDS SUMMARY | 2018-05-10 13:03 | XMS REPORT ---
Author Author Flower Clements Organization eClinicalWorks Address Unknown Phone Unavailable Care Team Providers Care Public Health Sanitarian Technician Name Role Phone Flower Clements CP Unavailable Allergies No Known Allergies Problems Problem Type Condition Code Onset Dates Condition Status Problem Chest pain R07.9 Active Problem Chronic migraine G43.709 Active Problem Acute seasonal allergic rhinitis due to other allergen J30.2 Active Assessment Tendonitis of shoulder, right M75.81 Active Assessment Chronic migraine G43.709 Active Assessment Chest discomfort R07.89 Active Medications Medication Code System Code Instructions Start Date End Date Status Dosage Sumatriptan Succinate [facility] 71276542063 100 mg orally at onset of headache repeat in 4hrs if needed max 2 a day Active 1 tablet Vital Signs Date/Time: September 09, 2017 BMI 29.66 Index Weight 157 lbs Height 61 in Temperature 98.2 F Cardiac Monitoring Heart Rate 74 /min Blood Pressure Diastolic 84 mm Hg Blood Pressure Systolic 130 mm Hg Results No Known Results Summary Purpose eClinicalWorks Submission
--- OUTSIDE RECORDS SUMMARY | 2018-05-10 13:03 | XMS REPORT ---
Author Author Yane Guerra [facility] eClinicalWorks Address Unknown Phone Unavailable Care Team Providers Care Pump Service Supervisor Name Role Phone Yane Guerra CP Unavailable Allergies, Adverse Reactions, Alerts Substance Reaction Event Type N.K.D.A. Info Not Available Non Drug Allergy Problems Problem Type Condition Code Onset Dates Condition Status Problem Chest pain R07.9 Active Problem SOB (shortness of breath) R06.02 Active Problem Chronic migraine G43.709 Active Assessment Yeast infection B37.9 Active Assessment Encounter for initial prescription of injectable contraceptive Z30.013 Active Medications Medication Code System Code Instructions Start Date End Date Status Dosage Depo-Provera [facility] [address]-02 150 MG/ML Intramuscular every 3 mo September 13, 2016 Mar 12, 2017 Active 1 ml Diflucan [facility] [address]-57 150 MG Orally one today and again in 72 hours September 13, 2016 September 16, 2016 Active 1 tablet Sumatriptan Succinate [facility] [address]-11 100 MG orally at onset of headache repeat in 4hrs if needed max 2 a day Active 1 tablet Vital Signs Date/Time: September 13, 2016 BMI 28.53 Index Weight 151 lbs Height 61 in Cardiac Monitoring Heart Rate 96 /min Blood Pressure Diastolic 84 mm Hg Blood Pressure Systolic 122 mm Hg Results Name Result Date Reference Range Unit Abnormality Flag URINE ---- Test, Urine neg [id number] Summary Purpose eClinicalWorks Submission
--- NOTE | 2018-07-07 02:56 | Operative Report ---
DATE OF PROCEDURE: SURGEON: Dami Heredia MD PROCEDURES: Esophagogastroduodenoscopy with biopsies and colonoscopy with biopsies and polypectomy. INDICATIONS FOR EGD: Dyspepsia. INDICATIONS FOR COLONOSCOPY: History of bright red blood per rectum, diarrhea. MEDICATIONS: The patient was done under MAC, please see anesthesiologist's note. PROCEDURE IN DETAIL: With the patient in left lateral decubitus position, flexible fiberoptic Olympus gastroscope was introduced into the esophagus under direct visualization without any difficulty. There was some patchy erythema noted in distal esophagus. A minute tongue of velvety red mucosa was noted to extend proximally from the GE junction and biopsies were obtained to rule out Lee's. The scope was then advanced with ease into the stomach. Mucosa overlying the antrum and the body revealed some patchy erythema and low-grade to moderate edema and biopsies were obtained and sent to stain for H pylori. There was somewhat of an extrinsic compression noted against the upper body greater curvature. The overlying mucosa just revealed mild inflammatory changes. Pylorus was of normal contour and shape, was intubated with ease and the scope was advanced all the way to the second portion of the duodenum. The scope was then withdrawn slowly. Mucosa overlying the proximal second portion and duodenal bulb grossly appeared to be within normal limits. Biopsies were obtained to rule out sprue. The scope was then withdrawn back into the stomach and retroflexed. Mucosa overlying the fundus and the cardia grossly appeared to be within normal limits. The scope was then straightened out. The scope was subsequently withdrawn. The patient tolerated the procedure well. IMPRESSION: 1. Mild distal esophagitis. 2. Rule out Lee esophagus. 3. Gastritis, biopsied. Biopsies sent to stain for Helicobacter pylori. 4. Extrinsic compression upper body greater curvature. 5. Rule out sprue. PLAN: Follow up histology. Initiate Protonix 40 mg one p.o. q.a.m. a.c. The patient will need a CT scan of the abdomen. The patient was then turned around after adequate lubrication of the anal canal. A flexible fiberoptic Olympus colonoscope was inserted into the rectum with ease and advanced all the way to the cecum. It was then withdrawn slowly. Mucosa overlying the cecum, ascending colon, and transverse colon appeared to be within normal limits. Mild patchy inflammatory changes were noted in the left colon. Multiple random biopsies were obtained. An approximately 1 cm polyp was encountered in the rectum that was removed per snare electrocautery. The scope was then retroflexed into the distal rectum and small internal hemorrhoids were noted, none of which was actively bleeding. The scope was then straightened out. It was subsequently withdrawn. The patient tolerated the procedure well. IMPRESSION: 1. Mild patchy left-sided colitis. 2. Approximately 1 cm rectal polyp removed per snare electrocautery. 3. Internal hemorrhoids none actively bleeding. PLAN: Followup histology. Initiate VSL #3 one p.o. daily. Timing of followup colonoscopy, pending pathology report. Dami Heredia MD [facility] [place] /[id number] cc: DO Dami Ngo MD
== END | disposition home or self-care (01) ==
LOC: OR 13:00
PROVIDERS: ATTEND Internal Medicine Gastroenterology
DX: K29.50 Unspecified chronic gastritis without bleeding (principal); D12.8 Benign neoplasm of rectum; K20.9 Esophagitis, unspecified; K31.89 Other diseases of stomach and duodenum; K51.50 Left sided colitis without complications; K64.8 Other hemorrhoids; B96.81 Helicobacter pylori [H. pylori] as the cause of diseases classified elsewhere; F41.9 Anxiety disorder, unspecified; Z01.812 Encounter for preprocedural laboratory examination; Z68.29 Body mass index [BMI] 29.0-29.9, adult
CPT/HCPCS: 43239; 45380; 45385; 81025; J1980; J2001; J2250; J2704; 45378; 45384